=== PATIENT | female | born 1990 | race Caucasian/White ===

== ENCOUNTER 2018-07-03 22:50 | Emergency (ER) | payer OTHER ==
[2018-07-03] MEDS ORDERED: TRUVADA 200 MG-300 MG TABLET PO STA (23:09)
[2018-07-03] MEDS ORDERED: ISENTRESS PO SCH (23:15)
[2018-07-03] MEDS ORDERED: TRUVADA 200 MG-300 MG TABLET ONE (23:21)
[2018-07-03] MEDS ORDERED: ISENTRESS ONE (23:22)
--- NOTE | 2018-07-03 23:34 | ERPHSYRPT ---
- History of Present Illness Source: patient Exam Limitations: no limitations Patient Subjective Stated Complaint: Pt states she was giving insulin injection to pt and somehow after giving it her hand slipped and she stuck the 2nd finger on her left hand. Triage Nursing Assessment: [place]/warm/dry, resp easy, a&ox4, steady gait, no distress noted. 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 When she was closing the syringe post injection, she got stuck with a needle on her R hand the second digit. Pt has no complains. Timing/Duration: today Severity: mild Associated Symptoms: denies symptoms Allergies/Adverse Reactions: No Known Drug Allergies Allergy (Unverified 06/12/11 21:25) Home Medications: Non-Formulary Drug 06/12/11 [History] Hx Tetanus, Diphtheria Vaccination/Date Given: No Hx Influenza Vaccination/Date Given: No Hx Pneumococcal Vaccination/Date Given: No Immunizations Up to Date: No - Review of Systems Constitutional: No Fever, No Chills Eyes: No Symptoms Ears, Nose, & Throat: No Symptoms Respiratory: No Cough, No Dyspnea Cardiac: No Chest Pain, No Edema, No Syncope Abdominal/Gastrointestinal: No Abdominal Pain, No Nausea, No Vomiting, No Diarrhea Genitourinary Symptoms: No Dysuria Musculoskeletal: No Back Pain, No Neck Pain Skin: No Rash Neurological: No Dizziness, No Focal Weakness, No Sensory Changes Psychological: No Symptoms Endocrine: No Symptoms All Other Systems: Reviewed and Negative - Past Medical History Pertinent Past Medical History: No - Past Surgical History Past Surgical History: No - Social History Smoking Status: Unknown if ever smoked Exposure to second hand smoke: No Drug Use: none Patient Lives Alone: No - Female History Hx Now: No - Nursing Vital Signs Nursing Vital Signs: Initial Vital Signs Respiratory Rate 16 //19 23:23 - Physical Exam General Appearance: no apparent distress, alert Eye Exam: PERRL/EOMI, eyes nml inspection Ears, Nose, Throat Exam: normal ENT inspection, TMs normal, pharynx normal, moist mucous membranes Neck Exam: normal inspection, non-tender, supple, full range of motion Gastrointestinal/Abdomen Exam: soft, normal bowel sounds, No tenderness, No mass Back Exam: normal inspection, normal range of motion, No CVA tenderness, No vertebral tenderness Extremity Exam: normal inspection, normal range of motion, pelvis stable Neurologic Exam: alert, oriented x 3, cooperative, normal mood/affect, nml cerebellar function, nml station & gait, sensation nml, No motor deficits Skin Exam: normal color, warm, dry, No rash Lymphatic Exam: No adenopathy - Course Nursing assessment & vital signs reviewed: Yes Ordered Tests: Active Orders 24 hr Category Date Time Status Wound Care STAT Care 07/03/18 23:09 Active Medication Summary Generic Name Dose Route Start Last Admin Trade Name Freq PRN Reason Stop Dose Admin Emtricitabine/Tenofovir 1 tablet 07/04/18 10:00 Truvada 200 Mg-300 Mg Tablet PO 07/05/18 10:01 DAILY TRINITY Raltegravir 400 mg 07/03/18 23:15 07/03/18 23:18 Isentress PO 08/02/18 23:14 400 mg STAT TRINITY Administration Raltegravir 400 mg 07/04/18 10:00 Isentress PO 07/06/18 10:01 BID TRINITY Discontinued Medications Generic Name Dose Route Start Last Admin Trade Name Freq PRN Reason Stop Dose Admin Emtricitabine/Tenofovir 1 tablet 07/03/18 23:09 07/03/18 23:18 Truvada 200 Mg-300 Mg Tablet PO 07/03/18 23:10 1 tablet STAT STA Administration - Progress Progress: unchanged Progress Note: 07/03/18 23:32 PEP protocol was ordered. Labs are drawn and meds were given to the pt per protocol. Pt should f/u with results. Will see patient in: office Counseled pt/family regarding: need for follow-up - Departure Departure Disposition: Home Clinical Impression: Needle stick injury of finger of right hand Condition: Stable Critical Care Time: No [facility] [Primary Care Provider] - Additional Instructions: Take meds as ordered. F/U with labs.
[2018-07-04] MEDS ORDERED: TRUVADA 200 MG-300 MG TABLET PO SCH (10:00)
[2018-07-04] MEDS ORDERED: ISENTRESS PO SCH (10:00)
[2018-07-05 14:24] LABS: HIV Antigen/Antibody Combo Non Reactive (Non Reactive); Hepatitis B Sur Ag Screen Non Reactive (Non Reactive); Hepatitis C Antibody by EIA Non Reactive (Non Reactive)
== END 2018-07-03 23:36 | disposition home or self-care (01) ==
LOC: ER - EH 22:50
DX: S61.231A Puncture wound without foreign body of left index finger without damage to nail, initial encounter (principal); T75.89XA Other specified effects of external causes, initial encounter; W46.1XXA Contact with contaminated hypodermic needle, initial encounter; Y93.89 Activity, other specified; Y92.230 Patient room in hospital as the place of occurrence of the external cause
CPT/HCPCS: 36415; 86317; 86701; 86702; 86803; 87340; 87389; 99283; A9270-GY